=== PATIENT | male | born 1945 | race Two or more races ===

== ENCOUNTER 2017-07-25 10:53 | Inpatient (IN) | payer OTHER ==
[2017-07-25] MEDS ORDERED: NS 1,000 ML IV ONE ×2 (11:25→14:33)
[2017-07-25 11:37] LABS: PLATELET COUNT 229 10^3/uL (150-400)
[2017-07-25] MEDS ORDERED: PANTOPRAZOLE SODIUM 80 MG in NS 100 ML IV ONE ×3 (12:16→13:15)
[2017-07-25 12:27] LABS: INR 0.97 (0.83-1.16); PROTIME(PATIENT) 13.1 SEC (12.0-15.0)
--- NOTE | 2017-07-25 13:08 | EDPHY ---
H & P Time Seen by Provider: 07/25/17 11:24 HPI/ROS: HPI Rectal bleeding. 71-year-old male by private vehicle. This patient has a history of colorectal cancer. He reports that he had admission to our hospital in November of 2015 for rectal bleeding. He had upper and lower endoscopy. He had CT scans. He tells me that they never figured out the source of the bleeding. He reports that since November of 2015 is not had any bleeding. He reports that he woke up this morning with bright red blood per rectum but this soon turn to a dark blackish liquid. He reports feeling fatigued. Denies lightheadedness. He denies any history of diverticulosis. ROS: Constitutional: No fever, no chills. No weakness. Eyes: No discharge. No changes in vision. ENT: No sore throat. No nasal congestion or rhinorrhea. Respiratory: No cough. No shortness of breath. Cardiac: No chest pain, no palpitations. Gastrointestinal: No abdominal pain, no vomiting, no diarrhea. As above. Genitourinary: No hematuria. No dysuria or increased frequency with urination. Musculoskeletal: No back pain. No neck pain. No myalgias or arthralgias. Skin: No rashes. Neurological: No headache. No focal weakness or altered sensation. Past medical history: Rectal cancer status post hemicolectomy, chronic constipation, history of AVMs of the lower rectum, history of gastritis and duodenitis. As above. Left abdominal wall hernia. Social history: Here by himself. Nonsmoker. Denies alcohol. Physical Exam: General Appearance: Alert, no distress. This patient is responding to questions appropriately and in full sentences. This patient appears well- hydrated and well-nourished. Eyes: Pupils equal and round no pallor or injection. No lid edema, erythema or injection. Respiratory: There are no retractions, lungs are clear to auscultation with good air movement bilaterally. Cardiovascular: Regular rate and rhythm. No murmur. Gastrointestinal: Abdomen is soft and nontender, left mid abdominal wall hernia , easily reducible, bowel sounds normal. No focal tenderness at McBurney's point. No Gustafson sign. Rectal exam: Melenic like stool around his anus. He also had some stool in his bedside commode which was melenic in nature. No gross bright red blood per rectum. Neurological: Motor sensory function is grossly intact. Cranial nerves are normal. Skin: Warm and dry, no rashes. Musculoskeletal: Neck is supple and nontender. Extremities are symmetrical. All joints range without pain or impingement. Psychiatric: No agitation. No depression. Database: EKG: Imaging: Procedures: Emergency department course: IV placed x2, patient started on IV normal saline with 500 cc to 1 L to be given over the next hour. He was typed and screened. Vital signs reviewed. Tachycardia at 115 in triage. Blood pressure otherwise normal. Patient afebrile. IV Protonix, bolus followed by drip started. 1:10 p.m., the patient has had another 1 or 2 episodes of about 200 cc of dark melenic liquidy stool. He remains mildly tachycardic. Blood pressures have been normal to hypertensive. Hospitalist legal service specialist paged. 1:20 p.m., spoke with on-call legal service specialist Dr. Sarah Jaffe. Case discussed in detail with him. He he will consult with hospitalist service on further management. 1:25 p.m., repeat hematocrit ordered. Spoke with hospitalist. Patient accepted for admission under the care of Dr. Taylor. Patient admitted to the hospitalist service in stable condition. Dr. Taylor will consult with Dr. Jaffe of GI after her evaluation of the patient. Differential Diagnosis: The differential diagnosis on this patient includes but is not limited to lower gastrointestinal bleeding, diverticulosis, bleeding rectal arterial venous malformation. This represents a partial list of diagnoses considered. These considerations are based on history, physical exam, past history, reassessment and diagnostic testing. Smoking Status: Former smoker Constitutional: Initial Vital Signs Temperature (C) 37 C 07/25/17 11:05 Heart Rate 115 H 07/25/17 11:05 Respiratory Rate 18 07/25/17 11:05 Blood Pressure 127/115 H 07/25/17 11:05 O2 Sat (%) 94 07/25/17 11:05 O2 Delivery Mode Room Air Allergies/Adverse Reactions: No Known Allergies Allergy (Verified 07/25/17 11:04) Home Medications: Medication Instructions Recorded NK [No Known Home Meds] 07/25/17 Medical Decision Making - Data Points Laboratory Results: Laboratory Results 07/25/17 13:13 07/25/17 11:25 Medications Given: Pantoprazole Sodium 80 mg/ (Sodium Chloride) 100 mls @ 10 mls/hr IV Q10H NIKHIL Stop: 01/21/18 20:59 Last Admin: 07/26/17 06:29 Dose: 100 mls Sodium Chloride (1/2 Ns) 1,000 mls @ 75 mls/hr IV CONT NIKHIL Stop: 01/21/18 14:14 Last Admin: 07/26/17 05:17 Dose: 1,000 mls Discontinued Medications Sodium Chloride (Ns) 1,000 mls @ 0 mls/hr IV EDNOW ONE; Wide Open PRN Reason: Protocol Stop: 07/25/17 11:26 Last Admin: 07/25/17 11:31 Dose: 1,000 mls Pantoprazole Sodium 80 mg/ (Sodium Chloride) 100 mls @ 200 mls/hr IV ONCE ONE Stop: 07/25/17 12:45 Last Admin: 07/25/17 12:29 Dose: 100 mls Pantoprazole Sodium 80 mg/ (Sodium Chloride) 100 mls @ 10 mls/hr IV EDNOW ONE Stop: 07/25/17 23:14 Last Admin: 07/25/17 13:12 Dose: 100 mls Sodium Chloride (Ns) 1,000 mls @ 0 mls/hr IV ONCE ONE PRN Reason: Wide Open Stop: 07/25/17 14:34 Last Admin: 07/25/17 13:35 Dose: 1,000 mls Polyethylene Glycol/Electrolytes (Gavilyte - G) 4,000 ml PO ONCE ONE Stop: 07/25/17 17:01 Last Admin: 07/25/17 17:08 Dose: 4,000 ml Departure - Departure Disposition: [facility] Inpatient Acute Clinical Impression: Rectal bleeding
[2017-07-25] MEDS ORDERED: ACETAMINOPHEN 325 MG TAB PO PRN (14:13)
[2017-07-25] MEDS ORDERED: ONDANSETRON DISINTEGRATING 4 MG TAB PO PRN (14:13)
[2017-07-25] MEDS ORDERED: ONDANSETRON 4 MG/2 ML VIAL IVP PRN (14:13)
[2017-07-25] MEDS ORDERED: PEG 3350/NA SULF,BICARB,CL/KCL (GAVILYTE-G) 4000 ML BTL PO ONE ×2 (17:00→18:00)
--- NOTE | 2017-07-25 18:43 | GHP ---
[f rep st] HISTORY AND PHYSICAL DATE OF ADMISSION: 07/25/2017 CHIEF COMPLAINT: Rectal bleeding. HISTORY OF PRESENT ILLNESS: The patient is a 71-year-old male with a history of colon cancer and martina or GI bleeds, who presents to the emergency department with rectal bleeding. He states he woke up th is morning at 2:30 a.m. with a bloody stool, which he describes as bright red blood. This then progr essed to 2 more loose melanotic stools. He does not take any blood thinners or aspirin. At that poi nt, he presented to the emergency department for evaluation. He denies chest pain, shortness of chester th, and dizziness. He denies abdominal pain, nausea, and vomiting. Since admission to the hospital, he has had a recurrent bloody stool, which was described by the RN as approximately 100 mL of fresh blood. He has remained hemodynamically stable. Prior history includes GI bleeding events in 2010, 2011, and again in 2015. Most recently, he was ad mitted to the hospital in November 2015, at which time he underwent EGD and colonoscopy. These studies re vealed a mild gastritis and duodenitis, but no ulcers or active bleeding. The colonoscopy showed sky diverticulosis. No AVMs or sites of active bleeding could be found, though it was noted that there was blood present in all the diverticula with old blood clots as well as bright red blood. He then u nderwent a tagged red cell scan which showed an active bleed in the rectosigmoid colon region. This was followed by an angiography study, which did not show evidence of active GI bleeding. Ultimately, it was deemed most likely to be diverticular bleed and did resolve without further intervention. He required 2 units of packed red blood cells during that episode. He has had no bleeding since that h ospital discharge in November 2015 until this morning. He tells me he has no intention of undergoing a colonoscopy or interventions. He felt his hospitaliz ation related to GI bleeding was very traumatic for him, undergoing multiple studies and procedures. He expects his bleeding will resolve after taking the GoLYTELY prep, and he wishes to proceed with t he prep. He also notes a hernia in his left abdominal wall, which he has discussed Dr. Srikanth Jensen in the past. He was offered repair, though he has not followed up for this. At this time, this is nontender and has not been causing him any problems. He denies fever, chills, and other changes in h is bowel or bladder habits prior to this bleeding episode. In the emergency department, his hemoglob in was 14.5, repeat hemoglobin was 13.5. He is hemodynamically stable and is admitted to the [facility] for further management. PAST MEDICAL/SURGICAL HISTORY: 1. Colon cancer, status post resection with ostomy, followed [place]aked[place] [address] Jensen. 2. Ventral hernia, which is nontender and reducible. 3. History of duodenal ulcers. 4. History of AVM. 5. History of GI bleeds, most recently in November 2015, thought to be a diverticular source. 6. Possible PTSD. 7. History of TKA. 8. Previous hernia repair. MEDICATIONS: He takes no medications. ALLERGIES: No known drug allergies. FAMILY HISTORY: Reviewed and not pertinent. SOCIAL HISTORY: Patient is . He lives independently. He uses medical marijuana. He report s occasional alcohol use. Denies other illicit drug use. REVIEW OF SYSTEMS: A 10-point review of systems was performed and is negative except as per HPI. OBJECTIVE: VITAL SIGNS: Temperature 36.6, blood pressure 158/82, heart rate 89, respiratory rate 16 . He is 97% on room air. GENERAL: Awake, alert, and oriented, in no distress. HEENT: Head atraum atic, normocephalic. Pupils equal, round, and reactive to light. Extraocular movements intact. Liane pharynx is clear. Mucous members are moist. NECK: Supple. There is no JVD. HEART: Regular rate and rhythm without murmur. LUNGS: Clear to auscultation bilaterally. ABDOMEN: Soft, nondistended, and nontender with normoactive bowel tones. He has a left ventral wall hernia, which is nontender a nd easily reducible. EXTREMITIES: Without cyanosis, clubbing, or edema. NEUROLOGIC: Grossly nonfo carole. LABORATORY DATA: CBC initially revealed a hemoglobin of 14.5; it has trended down to 11.9 over 4 judah rs since admission. Complete metabolic panel is within normal limits, though his blood sugar is 120. ASSESSMENT AND PLAN: The patient is a 71-year-old male with history of colon cancer and recurrent ga strointestinal bleeds, who presents to the emergency department with rectal bleeding. 1. Gastrointestinal bleed. I suspect this is a lower gastrointestinal bleed, most likely diverticul ar, given his previous history of diverticulosis. He remains hemodynamically stable, and he does hav e some reserve presenting with hemoglobin of 14.9. Will continue to trend q.6 hour H and H. Gastroe nterology is consulted. He will be prepped for colonoscopy, though the patient states he does not pl an to have a colonoscopy. In the less likely event this is an upper gastrointestinal bleed, will con tinue him on a Protonix drip for now and await further recommendations. Per Gastroenterology. If he has significant active bleeding during the night, could proceed with angiography to identify the zaynab rce and possible interventional radiology embolization if indicated. He is typed and screened for 2 units, but there is no transfusion indicated at this time. 2. History of colon cancer, status post resection. 3. Acute blood loss anemia secondary to gastrointestinal bleeding, as above we are trending his H an d H. 4. Ventral wall hernia has been evaluated by Dr. Jensen, and the patient can follow up with him once he is medically stabilized for consideration of elective repair. There is no evidence of incarcerati on. This is nontender and easily reducible. 5. Deep vein thrombosis prophylaxis. Pharmacologic therapy is contraindicated with active gastroint estinal bleeding. We will place sequential compression devices. 6. Code status: Patient is full code. 7. Disposition: Patient is admitted to inpatient status, as I anticipate he will require greater th an 48 hours hospitalization for ongoing management and monitoring of his gastrointestinal bleeding. /[id number]/MODL
[2017-07-25] MEDS: PANTOPRAZOLE SODIUM 80 MG in NS 100 ML IV SCH (21:41)
[2017-07-26] MEDS: 1/2 NS 1,000 ML IV SCH ×2 (05:17→19:31)
[2017-07-26] MEDS: PANTOPRAZOLE SODIUM 80 MG in NS 100 ML IV SCH ×2 (06:29→18:10)
--- NOTE | 2017-07-26 12:03 | PDMN ---
Medical Necessity Medical necessity: Pt meets IP criteria per MD; est los >2 mn for ongoing management & monitoring of GI bleed & anemia; admit for GI consult, blood transfusion, IV Protonix, IVFs & possible IR embolization; hx GI bleeds, colon cancer s/p resection, ventral hernia, AVM; per H&P & order 07/25/17
[2017-07-26] MEDS ORDERED: ONDANSETRON 4 MG/2 ML VIAL IVP PRN (12:11)
[2017-07-26] MEDS ORDERED: fentaNYL 100 MCG/2 ML INJ IVP PRN (12:11)
[2017-07-26] MEDS ORDERED: NALOXONE HCL 0.4 MG/ML INJ IVP PRN (12:11)
[2017-07-26] MEDS ORDERED: HYDROCODONE/APAP 5/325 TAB PO PRN (12:11)
[2017-07-26] MEDS ORDERED: ALBUTEROL 3 ML DEYVIAL IH PRN (12:11)
[2017-07-26] MEDS ORDERED: DEXAMETHASONE 4 MG/ML VIAL IVP PRN (12:11)
[2017-07-26] MEDS ORDERED: ACETAMINOPHEN 500 MG TAB PO PRN (12:11)
[2017-07-26] MEDS ORDERED: OXYCODONE/APAP 5/325 TAB PO PRN (12:11)
--- NOTE | 2017-07-26 12:11 | PDANEPAE ---
ANE History of Present Illness Colonoscopy ANE Past Medical History - Cardiovascular History Hx Hypertension: Yes - Pulmonary History Hx Oxygen in Use at Home: No Hx Sleep Apnea: No Sleep Apnea Screening Result - Last Documented: Positive - Endocrine History Hx Diabetes: No - Chronic Pain History Chronic Pain: Yes ANE Review of Systems Review of Systems: ANE Patient History - Allergies Allergies/Adverse Reactions: No Known Allergies Allergy (Verified 07/25/17 11:04) - Home Medications Home Medications: NK [No Known Home Meds] 07/25/17 [Last Taken Unknown] - NPO status NPO Since - Liquids (Date): 07/26/17 NPO Since - Liquids (Time): 00:00 NPO Since - Solids (Date): 07/25/17 NPO Since - Solids (Time): 18:00 - Smoking Hx Smoking Status: Former smoker ANE Labs/Vital Signs - Labs Result Diagrams: 07/26/17 08:57 07/26/17 03:13 - Vital Signs Blood Pressure: 147/91 Heart Rate: 70 Respiratory Rate: 16 O2 Sat (%): 93 Height: 172.72 cm Weight: 77.111 kg ANE Physical Exam - Airway Neck exam: FROM Mallampati Score: Class 2 Mouth exam: normal dental/mouth exam - Pulmonary Pulmonary: clear to auscultation - Cardiovascular Cardiovascular: regular rate and rhythym - ASA Status ASA Status: III ANE Anesthesia Plan Anesthesia Plan: GA with mask
--- NOTE | 2017-07-26 15:48 | GCON ---
[f rep st] CONSULTATION REFERRING PHYSICIAN: Tiffanie Taylor MD REASON FOR CONSULTATION: Hematochezia. CHIEF COMPLAINT: Bloody stool. HISTORY OF PRESENT ILLNESS: Briefly, the patient is a pleasant 72-year-old male who presented to the emergency room on 07/25/2017, for the evaluation of rectal bleeding. Of note, he has a prior histor y of colon cancer for which he has had partial colectomy. He initially had an ostomy and then madeleine padron had a reanastomosis. He reports that over his life he has had several episodes of painless rectal bleeding. He has underg one multiple upper and lower endoscopies per his recollection. Some of his bleeding events have been relatively significant involving hospitalization and transfusion of blood. The most recent time nieves t he had bleeding was in 2015. At that time, he underwent upper and lower endoscopy without a source of bleeding. Ultimately tagged cell scan revealed bleeding suspicious for the colon. Subsequent an giography was negative for bleeding. He was discharged from that hospital visit feeling well. He rizzo d no bleeding until yesterday. He reports that yesterday he had 2 or 3 episodes of frankly bloody, p ainless, profuse, rectal bleeding. He reported some looser stools. He reports a distant history of constipation, although that his bowel movements have been more normal recently. He is not taking any blood thinning medicines. He reports no fevers, chills, or sweats. He has had no nausea or vomiting. ALLERGIES: None. OUTPATIENT MEDICATIONS: None. PAST MEDICAL HISTORY: Includes colon cancer, ventral hernia, history of duodenal ulcer, history of p ossible AVM, history of GI bleeding as described above. FAMILY HISTORY: Negative for colon cancer. SOCIAL HISTORY: He lives independently. He uses marijuana. He drinks alcohol rarely. Does not use drugs. REVIEW OF SYSTEMS: A complete 10-point review was undertaken and the pertinent positives and negativ es are detailed in the history of present illness. PHYSICAL EXAMINATION: GENERAL: This is a well-developed male, in no apparent distress. HEENT: His pupils are equal, round, reactive to light and accommodation. His sclerae are nonicteric. His orop harynx is clear. NECK: Supple without lymphadenopathy. HEART: Regular without murmur. LUNGS: Cl ear to auscultation with good respiratory effort. ABDOMEN: Soft, nontender, with normoactive bowel sounds. He does have a left ventral wall hernia. EXTREMITIES: Without edema. NEUROLOGIC: Grossly nonfocal. PSYCHIATRIC: Exam is essentially normal, although the patient is somewhat easily distrac tible with some wandering related to the details of his history. LABORATORY DATA: White count of 5.31, hemoglobin of 10.9, hematocrit of 30.9. Of note, the patient' s admission hemoglobin was 14.5 with hematocrit of 42. INR 0.97. Sodium of 144, potassium of 4.3, c hloride of 108, bicarb of 21, BUN of 19, creatinine of 0.8. Liver function tests and bilirubin were normal. Albumin of 4.2. IMPRESSION/RECOMMENDATIONS: The patient has been admitted to the hospital with a significant amount of rectal bleeding associated with a fall in his hematocrit. He has had a similar presentation on mu ltiple occasions. He describes the only positive finding in his bleeding workup was a tagged cell sc an, which localized to the colon. Overall, I am suspicious for recurrent diverticular bleeding. The differential, however, could include malignancy, arteriovenous malformation, anastomotic bleeding, e tc. At this point, the patient is unwilling to proceed with any gastrointestinal workup. We discussed th e benefits of establishing a reason for his bleeding so that we could consider prevention strategies or treatment strategy should he have repeat bleeding. There are identifiable sources of bleeding nieves t can be ameliorated endoscopically. Even if his bleeding was identified to be diverticular in natur e, given the recurrent nature of his bleeding, it could be worthwhile to consider a partial colectomy ; however, at this time. He is unwilling to proceed with any endoscopic evaluation. Luckily, he has remained hemodynamically stable, and over his first hospital night, the bleeding seems to have disco ntinued. At this time, I recommend continue the observational care. We will follow his blood counts carefully . As we do not have plans to proceed with any further diagnostic studies, we can advance his diet. If he has recurrent or more significant bleeding, I suspect he may change his mind with regard to add itional workup. For now, I will sign off the patient's care. Please call if there are any questions. /[id number]/MODL
--- NOTE | 2017-07-26 16:46 | HOSPPROG ---
Hospitalist Progress Note Assessment/Plan: The patient is a 72yo M with PMH colon ca who was admitted for rectal bleeding/ hematochezia. ASSESSMENT/PLAN: LGIB w/ hematochezia Hx colon ca, s/p Tx -monitor vol status/hgb -GI consulted - pt declined colooscopy -If hgb stable in AM and no more bloody stool, DC to home for outpt FU. Chronic neck pain -add tramadol prn pain VTE prophylaxis: contraindicated w/ acute bleed Code Status: Full Status: inpt for > 2 midnight stay. Disposition: medsur with discharge anticipated tomorrow The pt is new to me. Reviewed chart for this visit. ____ SUBJECTIVE: Pt says stool stopped containing blood this afternoon. Refuses colonoscopy. OBJECTIVE: Physical Exam: General: The patient is a male who is alert and in no acute distress. HEENT: normocephalic, extraocular movements intact, conjunctivae clear. Mucous membranes moist. Neck: trachea midline, no visible masses. +tenderness R paraspinal cervical musculature. Abd: soft and nondistended. Musculoskeletal: Normal muscle tone/bulk. Neuro: cranial nerves II XII grossly intact. Intact gross motor and sensory function. Psych: appropriate mood and appropriate affect. Skin: No pallor. No petechiae. Heme/lymph: No peripheral edema at bilateral lower legs. Labs/Imaging/Other Tests: Personally reviewed/interpreted. Objective: Vital Signs Temp Pulse Resp BP Pulse Ox 37.2 C 86 19 138/90 H 93 07/26/17 16:00 07/26/17 16:00 07/26/17 16:00 07/26/17 16:00 07/26/17 16:00 Laboratory Results 07/26/17 08:57 07/26/17 03:13 07/25/17 07/26/17 07/27/17 05:59 05:59 05:59 Intake Total 2950 Output Total 3359 3620 Balance 525 -2590 PT 13.1 SEC (12.0-15.0) 07/25/17 11:25 INR 0.97 (0.83-1.16) 07/25/17 11:25 ICD10 Worksheet Patient Problems: Problems Problem Status Onset Rectal bleeding Acute GI bleed Acute
[2017-07-26] MEDS: traMADol 50 MG TAB PO PRN (20:38)
[2017-07-27] MEDS: PANTOPRAZOLE SODIUM 80 MG in NS 100 ML IV SCH ×2 (03:28→12:47)
[2017-07-27] MEDS: traMADol 50 MG TAB PO PRN (05:29)
[2017-07-27 05:39] LABS: PLATELET COUNT 182 10^3/uL (150-400)
[2017-07-27 08:26] VITALS: RESP 18; TEMP 98.1; O2SAT 91
[2017-07-27 11:36] VITALS: BP 118/64; PULSE 91
--- NOTE | 2017-07-27 16:13 | PDDCSUM ---
Discharge Summary Discharge Summary: DISCHARGE SUMMARY FOLLOW-UP ITEMS: Repeat hemoglobin and hematocrit in 2 weeks, follow up with [facility] DATE OF ADMISSION: 07/25/2017 DATE OF DISCHARGE: 07/27/2017 DISCHARGE DIAGNOSES: 1. Acute lower gastrointestinal hemorrhage 2. Acute blood loss anemia 3. History of colon cancer CONSULTATIONS: Gastroenterology PROCEDURES / IMAGING: None CHIEF COMPLAINT: Acute hematochezia SUBJECTIVE: Dark appearing bowel movement, blood PHYSICAL EXAM ON DISCHARGE: Systolic blood pressure is 130-160, heart rate 70 80, afebrile overnight, satting on room air, abdomen is soft nontender nondistended, bowel sounds are present, lungs are clear to auscultation bilaterally LABS ON DISCHARGE: Hemoglobin is 10.0, BUN 13 HOSPITAL COURSE BY PROBLEM: The patient presented with acute hematochezia most likely secondary to a diverticular bleed, with history of colon cancer as well as previous lower GI evaluation including a tagged red cell scan and colonoscopies. Patient was seen consultation by Gastroenterology, they recommended at least a partial colonoscopy to further evaluate. The patient did not want to undergo additional procedures at this time and given that his hemoglobin level has stabilized around 10 and he is not experiencing any further blood in his stool, the patient is feeling comfortable being discharged home. It should be noted that the patient's hemoglobin level did start around 13, it did go down to 10, in the setting of lower gastrointestinal hemorrhage, with acute blood loss anemia, not requiring transfusion. The patient did receive a proton pump inhibitor, given the possibility of upper GI source in setting of his dark stools, the patient will be continued on oral PPI twice daily to be followed up in the outpatient setting through [facility]. He also continue on as needed tramadol, for his chronic pain. I have encouraged him to follow up with the primary care provider as well as Dr. Robson Jensen to address his prior surgical site hernia, as well as Dr. Reilly Jaffe [facility]. DISCHARGE MEDICATIONS: Please see official discharge medication reconciliation sheet in chart , pantoprazole 40 mg twice daily, tramadol 50 mg as needed. DISCHARGE INSTRUCTIONS: Please have outpatient hemoglobin and hematocrit drawn in 2 weeks. TIME SPENT: Greater than 30 minutes were spent on direct patient care, as well as discharge planning and preparation.
--- NOTE | 2017-07-28 09:46 | ASDISCHSUM ---
Discharge Information Plan Status:Home with No Needs Medically Cleared to Leave: Discharge Date:07/27/2017 01:10 PM CM D/C Disposition: ADT D/C Disposition:Home, Routine, Self-Care Projected Discharge Date:07/27/2017 01:10 PM Transportation at D/C: Discharge Delay Reason: Follow-Up Date:07/27/2017 01:10 PM Discharge Slot: Final Diagnosis: Placement Information Patient Contact Information Contact Name:RACHEL Relationship:Daughter Address: City: [facility] Phone: State/Zip Code: Email: Financial Information Financial Class: Primary Plan Desc:MEDICARE INPATIENT Primary Plan Number:[id number] Secondary Plan Desc: Secondary Plan Number: Assessment Information [facility] CM Progress Note CM Note CM Note Notes: Pt DC'd yesterday. [facility] discovered that pt has no Medicare Part D. They were able to reduce the cost of his prescriptions by using discount cards. Asked Sharonda from [employer] to meet with pt to see if he is eligible for Medicaid. Date Signed: 07/28/2017 09:45 AM Electronically Signed By:Brenda Roy LCSW Intervention Information
== END 2017-07-27 13:10 | disposition home or self-care (01) | DRG 378 ==
LOC: F1N 15:03
PROVIDERS: ADMIT Hospitalist; ATTEND Internal Medicine
DX: K57.31 Diverticulosis of large intestine without perforation or abscess with bleeding (principal); D62 Acute posthemorrhagic anemia; K43.9 Ventral hernia without obstruction or gangrene; Z85.038 Personal history of other malignant neoplasm of large intestine; Z96.659 Presence of unspecified artificial knee joint
CPT/HCPCS: 96365